=== PATIENT | female | born 1990 | race Caucasian/White ===

== ENCOUNTER 2023-02-26 06:39 | Day surgery (SDC) | payer SELFPAY ==
[2023-02-15 11:30] VITALS: BMI 24.7
[2023-02-26] MEDS ORDERED: BACITRACIN ZINC 15 GM TUBE TOPICAL OINTMENT ONE (07:11)
[2023-02-26] MEDS ORDERED: BUPIVACAINE HCL/PF 2.5 MG/ML - 30 ML VIAL IJ ONE (07:12)
[2023-02-26] MEDS ORDERED: LIDOCAINE 1%-EPI 1:100,000 30 ML MDV IJ ONE (07:12)
[2023-02-26] MEDS ORDERED: PROPOFOL 20 ML ONE ×2 (07:51→11:10)
[2023-02-26] MEDS ORDERED: SUCCINYLCHOLINE CHLORIDE 200 MG/10 ML SYRINGE ONE (07:58)
[2023-02-26] MEDS ORDERED: MIDAZOLAM HCL 2 MG/2 ML SINGLE DOSE VIAL ONE (08:46)
[2023-02-26] MEDS ORDERED: DEXAMETHASONE SOD PHOSPHATE 4 MG/1 ML VIAL ONE (09:07)
[2023-02-26] MEDS ORDERED: ONDANSETRON 4 MG/2 ML VIAL ONE (09:07)
[2023-02-26] MEDS ORDERED: ceFAZolin SODIUM 1 GM VIAL ONE (09:07)
[2023-02-26] MEDS ORDERED: KETOROLAC TROMETHAMINE 30 MG/1 ML VIAL ONE (09:07)
[2023-02-26] MEDS ORDERED: HYDROmorphone HCL/PF 1 MG/ML VIAL ONE (11:11)
[2023-02-26] MEDS ORDERED: ONDANSETRON 4 MG/2 ML VIAL IVPUSH PRN (11:37)
[2023-02-26] MEDS ORDERED: oxyCODONE HCL 5 MG TABLET PO PRN (11:37)
[2023-02-26] MEDS ORDERED: LACTATED RINGERS SOLUTION 1,000 ML IV SCH (11:45)
[2023-02-26 12:33] VITALS: RESP 16; TEMP 97.1
[2023-02-26 13:17] VITALS: BP 98/62; PULSE 56
== END 2023-02-26 13:27 | disposition home or self-care (01) ==
LOC: FASU 06:39
PROVIDERS: ATTEND Surgery
CPT/HCPCS: 81025; 94760

== ENCOUNTER 2023-08-13 08:34 | Day surgery (SDC) | payer SELFPAY ==
[2023-08-06 13:54] VITALS: BMI 25.0
[2023-08-13] MEDS ORDERED: LIDOCAINE HCL 1%, 10 MG/ML (20ML VIAL) ONE (09:35)
[2023-08-13] MEDS ORDERED: BACITRACIN ZINC 15 GM TUBE TOPICAL OINTMENT ONE ×2 (09:35→12:46)
[2023-08-13] MEDS ORDERED: EPINEPHrine/PF 1 MG/1 ML (1:1,000) AMPULE ONE (09:35)
[2023-08-13] MEDS ORDERED: LACTATED RINGERS SOLUTION 1,000 ML IV SCH (10:15)
[2023-08-13] MEDS ORDERED: MIDAZOLAM HCL 2 MG/2 ML SINGLE DOSE VIAL ONE (10:40)
[2023-08-13] MEDS ORDERED: PROPOFOL 40 ML ONE (10:41)
[2023-08-13] MEDS ORDERED: ROCURONIUM BROMIDE 50 MG/5 ML SYRINGE ONE (10:41)
[2023-08-13] MEDS ORDERED: ACETAMINOPHEN INJECTION 100 ML IVPB ONE (13:17)
[2023-08-13] MEDS ORDERED: NEOSTIGMINE METHYLSULFATE 0.5 MG/1 ML - 10 ML MDV ONE (14:06)
[2023-08-13] MEDS ORDERED: FENTANYL CITRATE/PF 50 MCG/ML VIAL ONE ×2 (14:28→14:56)
[2023-08-13] MEDS ORDERED: ONDANSETRON 4 MG/2 ML VIAL ONE (14:31)
[2023-08-13] MEDS: ONDANSETRON 4 MG/2 ML VIAL IVPUSH PRN (14:32)
[2023-08-13] MEDS ORDERED: oxyCODONE HCL 5 MG TABLET PO PRN ×2 (15:03)
[2023-08-13] MEDS ORDERED: oxyCODONE HCL 5 MG TABLET ONE (15:36)
[2023-08-13] MEDS: oxyCODONE HCL 5 MG TABLET PO ONE (15:38)
[2023-08-13 16:11] VITALS: RESP 16; TEMP 98.1
[2023-08-13 16:30] VITALS: BP 108/59; PULSE 70
== END 2023-08-13 17:20 | disposition home or self-care (01) ==
LOC: FASU 08:34
PROVIDERS: ATTEND Surgery
CPT/HCPCS: 84703; 94760; J0131